=== PATIENT | male | born 1985 | race Caucasian/White ===

== ENCOUNTER → 2017-08-19 | Outpatient (CLI) | payer OTHER, MEDICARE ==
[~2017-08-19] VITALS: Ht 188 cm; Wt 126.0 kg
[~2017-08-19] MED LIST: ASPI-1182 PO; BUME1TAB17 PO; CARV6 PO; FURO40I PO; LOSA25TA21 PO; MAGN250T2 PO; METF500T4 PO; POTA595T PO; SERT100T12 PO; SPIR25 PO
[2017-08-19 10:38] VITALS: BP 113/73
== END | disposition home or self-care (01) ==
LOC: SRCNTR 10:36
PROVIDERS: ATTEND Internal Medicine Clinical Cardiac Electrophysiology
DX: Z45.02 Encounter for adjustment and management of automatic implantable cardiac defibrillator (principal); I50.9 Heart failure, unspecified; I44.7 Left bundle-branch block, unspecified; F32.9 Major depressive disorder, single episode, unspecified; Z79.82 Long term (current) use of aspirin
CPT/HCPCS: G0463

== ENCOUNTER → 2017-12-23 | Outpatient (CLI) | payer MEDICARE, OTHER ==
[~2017-12-23] VITALS: Ht 188 cm; Wt 139.0 kg
[~2017-12-23] MED LIST changes: +AMIT10TA6 PO; +DIGO-44 PO; -METF500T4 PO; +METF500T6 PO
[2017-12-23 11:14] VITALS: BP 107/63
== END | disposition home or self-care (01) ==
LOC: SRCNTR 11:13
PROVIDERS: ATTEND Internal Medicine Clinical Cardiac Electrophysiology
DX: I11.0 Hypertensive heart disease with heart failure (principal); I50.9 Heart failure, unspecified; F32.9 Major depressive disorder, single episode, unspecified; E11.9 Type 2 diabetes mellitus without complications; I42.9 Cardiomyopathy, unspecified; Z79.82 Long term (current) use of aspirin
CPT/HCPCS: G0463

== ENCOUNTER → 2018-07-10 | Outpatient (CLI) | payer MEDICARE, OTHER ==
[~2018-07-10] MED LIST changes: -FURO40I PO; -LOSA25TA21 PO; +LOSA25TA41 PO; +METF-960 PO; -METF500T6 PO
[2018-07-10 13:10] VITALS: BP 116/50
== END | disposition home or self-care (01) ==
LOC: SRCNTR 10:41
PROVIDERS: ATTEND Internal Medicine Clinical Cardiac Electrophysiology
DX: R55 Syncope and collapse (principal); I50.9 Heart failure, unspecified
CPT/HCPCS: G0463